=== PATIENT | female | born 1945 | race Caucasian/White ===

== ENCOUNTER → 2016-06-08 | Outpatient (CLI) | payer MEDICARE | LOC: RAD 15:11 | PROVIDERS: ATTEND Family Medicine | DX: S40.021D Contusion of right upper arm, subsequent encounter (principal); X58.XXXD Exposure to other specified factors, subsequent encounter | CPT/HCPCS: 73060 ==

== ENCOUNTER → 2016-06-22 | Outpatient (CLI) | payer MEDICARE ==
[2016-06-22 10:25] LABS: ANION GAP 14.6 MEQ/L (3-15)
== END ==
LOC: RAD 09:52
PROVIDERS: ATTEND Family Medicine
DX: M79.621 Pain in right upper arm (principal); Z85.3 Personal history of malignant neoplasm of breast; S46.111A Strain of muscle, fascia and tendon of long head of biceps, right arm, initial encounter; X58.XXXA Exposure to other specified factors, initial encounter
CPT/HCPCS: 36415; 73220; 80048; A9579